=== PATIENT | female | born 1995 | race Caucasian/White ===

== ENCOUNTER 2020-07-26 22:56 | Emergency (ER) | payer OTHER ==
[~2020-07-26] VITALS: Ht 172.7 cm; Wt 67.1 kg
[2020-07-26 23:15] LABS: BASOPHILS ABSOLUTE AUTO 0.01 K/mm3 (0.00-0.23); BASOPHILS PERCENT AUTO 0 % (0-2); EOSINOPHILS ABSOLUTE AUTO 0.04 K/mm3 (0.00-0.68); EOSINOPHILS PERCENT AUTO 1 % (0-6); Hematocrit 39.8 % (33.0-51.0); Hemoglobin 14.1 g/dL (11.5-16.0); IMMATURE GRAN ABSOLUTE AUTO 0.01 K/mm3 (0.00-0.10); IMMATURE GRAN PERCENT AUTO 0 % (0-1); LYMPHOCYTES ABSOLUTE AUTO 2.94 K/mm3 (0.84-5.20); LYMPHOCYTES PERCENT AUTO 44 % (21-46); MONOCYTES ABSOLUTE AUTO 0.43 K/mm3 (0.16-1.47); MONOCYTES PERCENT AUTO 6 % (4-13); Mean Corpuscular HGB 31.3 pg (26.0-34.0); Mean Corpuscular HGB Conc 35.4 g/dL (31.5-36.5); Mean Corpuscular Volume 88 fL (80-100); Mean Platelet Volume 11.6 fL (9.1-12.4); NEUTROPHILS PERCENT AUTO 49 % (41-73); Platelet Count 177 K/mm3 (150-400); RDW Coefficient Variation 11.5 % (11.7-14.2); White Blood Cell Count 6.73 K/mm3 (4.00-11.30)
[2020-07-26 23:30] LABS: Anion Gap 7 mmol/L (6-16); Blood Urea Nitrogen 14 mg/dL (8-24); Bun/Creatinine Ratio 14.6 (12.0-20.0); CO2, Blood 25 mmol/L (21-32); Calcium, Blood 8.6 mg/dL (8.5-10.1); Chloride, Blood 105 mmol/L (98-108); Creatinine, Blood 0.96 mg/dL (0.40-1.00); Ethanol (Alcohol), Blood, Med <3 mg/dL; Glomerular Filtration Rate >60 (60-); Glucose, Blood 107 mg/dL (70-99); Potassium, Blood 3.2 mmol/L (3.5-5.5); Sodium, Blood 137 mmol/L (136-145)
[2020-07-27] MEDS ORDERED: HYDR1TAB94 PO (01:30)
== END 2020-07-27 01:53 | disposition home or self-care (01) ==
LOC: ER 22:56
PROVIDERS: Student in an Organized Health Care Education/Training Program
DX: S82.301A Unspecified fracture of lower end of right tibia, initial encounter for closed fracture (principal); S01.111A Laceration without foreign body of right eyelid and periocular area, initial encounter; S81.011A Laceration without foreign body, right knee, initial encounter; Z23 Encounter for immunization; V47.5XXA Car driver injured in collision with fixed or stationary object in traffic accident, initial encounter; Y92.411 Interstate highway as the place of occurrence of the external cause
CPT/HCPCS: 12002; 29515; 70450; 72125; 73562-RT; 73610; 80048; 85025; 90471; 90714; 96374-59; 96375; 99284-25; A9270; G0480; J2270; J3010